=== PATIENT | female | born 1990 | race African-American/Black ===

== ENCOUNTER 2021-07-14 16:47 | Inpatient (IN) | payer MEDICAID ==
[~2021-07-14] VITALS: Ht 162.6 cm; Wt 77.1 kg
[2021-07-14] MEDS ORDERED: ALBUTEROL (0.083%) 2.5MG/3ML NEB HHN STA (17:12)
[2021-07-14] MEDS ORDERED: IPRATROPIUM BROMIDE (0.02%) 0.5MG/2.5ML NEB HHN STA (17:12)
[2021-07-14] MEDS ORDERED: METHYLPREDNISOLONE SOD SUCC 125 MG/2 ML VIAL IV STA (17:12)
[2021-07-14 17:38] LABS: BASOPHILS % 0.5 % (0.0-2.0); EOSINOPHILS % 2.7 % (0.0-5.0); HEMATOCRIT. 32.9 % (36.0-48.0); HEMOGLOBIN. 10.8 g/dL (12.0-16.0); LYMPHOCYTES % 26.1 % (20.0-50.0); MEAN CORPUSCULAR HEMOGLOBIN 27.1 pg (28.0-32.0); MEAN CORPUSCULAR VOLUME 82.5 fL (81.0-99.0); MEAN PLATELET VOLUME 8.3 fl (7.4-10.4); NEUTROPHILS % 62.7 % (40.0-76.0); PLATELET 339 x1000/uL (130-400); RED BLOOD CELL COUNT 3.99 mill/uL (4.2-5.4); RED CELL DISTRIBUTION WIDTH 14.5 % (11.6-14.6)
[2021-07-14 17:43] LABS: CHLORIDE 113 mEq/L (98-107); D-DIMER 2.27 mg/L FEU (<0.50); PROTHROMBIN TIME 11.1 sec (9.6-11.0)
[2021-07-14 17:46] LABS: HCG SCREEN NEGATIVE
[2021-07-14] MEDS ORDERED: FUROSEMIDE 40MG/4ML VIAL IVP ONE (18:00)
[2021-07-14] MEDS ORDERED: METOPROLOL TARTRATE 5MG/5ML VIAL IV SCH (18:45)
[2021-07-14 23:30] VITALS: BP 145/109
[2021-07-15] VITALS: BP 145/109
[2021-07-15] MEDS ORDERED: BICT1TAB PO (00:33)
[2021-07-15] MEDS ORDERED: ALBUTEROL (0.083%) 2.5MG/3ML NEB HHN PRN (00:45)
[2021-07-15] MEDS: AZITHROMYCIN 500 MG in DEXT 5% WATER 250 ML IV SCH (02:51)
[2021-07-15] MEDS: CEFTRIAXONE 1,000 MG in DEXTROSE 5% WATER 50 ML IV SCH (02:51)
[2021-07-15 04:00] VITALS: BP 130/90
[2021-07-15] MEDS: FUROSEMIDE 40MG/4ML VIAL IVP SCH ×2 (06:49→17:14)
[2021-07-15 07:40] LABS: CHLORIDE 109 mEq/L (98-107)
[2021-07-15 07:48] LABS: BASOPHILS % 0.5 % (0.0-2.0); HEMATOCRIT. 32.6 % (36.0-48.0); LYMPHOCYTES % 9.9 % (20.0-50.0); MEAN CORPUSCULAR HEMOGLOBIN 27.3 pg (28.0-32.0); MEAN CORPUSCULAR VOLUME 80.9 fL (81.0-99.0); MEAN PLATELET VOLUME 8.8 fl (7.4-10.4); MONOCYTES % 1.4 % (2.0-8.0); NEUTROPHILS % 88.2 % (40.0-76.0); PLATELET 315 x1000/uL (130-400); RED BLOOD CELL COUNT 4.03 mill/uL (4.2-5.4); RED CELL DISTRIBUTION WIDTH 14.5 % (11.6-14.6)
[2021-07-15 08:00] VITALS: BP 142/99
[2021-07-15] MEDS: METHIMAZOLE 10MG TABLET PO SCH ×2 (08:46→08:50)
[2021-07-15] MEDS: ASPIRIN 81MG TABLET PO SCH (08:46)
[2021-07-15] MEDS ORDERED: MEDICATION NOT ON FORMULARY EA (Bictegrav/Emtricit/Tenofov Ala (Biktarvy 50-200-25 mg Ta PO SCH (09:00)
[2021-07-15] MEDS ORDERED: LOSARTAN POTASSIUM 50 MG TABLET PO SCH (09:00)
[2021-07-15] MEDS ORDERED: CARVEDILOL 3.125 MG TABLET PO SCH (09:00)
[2021-07-15] MEDS ORDERED: METOPROLOL TARTRATE 5MG/5ML VIAL IV SCH (09:15)
[2021-07-15 12:00] VITALS: BP 126/94
[2021-07-15 16:00] VITALS: BP 131/90
[2021-07-15 16:14] LABS: CLARITY URINE CLOUDY (CLEAR); COLOR URINE ORANGE (YELLOW); KETONES URINE TRACE (NEGATIVE); LEUKOCYTE ESTERASE URINE 1+ (NEGATIVE); NITRITE URINE NEGATIVE (NEGATIVE); OCCULT BLOOD URINE 3+ (NEGATIVE); PH URINE 5.5 (4.5-8.0); PROTEIN URINE 2+ (NEGATIVE); SPECIFIC GRAVITY URINE 1.029 (1.005-1.030)
[2021-07-15] MEDS ORDERED: METOPROLOL TARTRATE 5MG/5ML VIAL IV PRN (16:15)
[2021-07-15 16:26] LABS: *BENZODIAZEPINES SCREEN URINE NEGATIVE (NEGATIVE); *COCAINE SCREEN URINE NEGATIVE (NEGATIVE); CANNABINOID URINE SCREEN NEGATIVE (NEGATIVE); METHADONE URINE SCREEN NEGATIVE (NEGATIVE); OPIATES URINE SCREEN NEGATIVE (NEGATIVE); PHENCYCLIDINE URINE SCREEN NEGATIVE (NEGATIVE)
[2021-07-15 16:27] LABS: *AMPHETAMINES SCREEN URINE NEGATIVE (NEGATIVE); *BARBITURATES SCREEN URINE NEGATIVE (NEGATIVE)
[2021-07-15 20:00] VITALS: BP 133/86
[2021-07-15] MEDS: CARVEDILOL 6.25 MG TABLET PO SCH (22:34)
[2021-07-16] VITALS: BP 130/88
[2021-07-16] MEDS: CEFTRIAXONE 1,000 MG in DEXTROSE 5% WATER 50 ML IV SCH (01:20)
[2021-07-16] MEDS: AZITHROMYCIN 500 MG in DEXT 5% WATER 250 ML IV SCH (02:47)
[2021-07-16 04:00] VITALS: BP 134/90
[2021-07-16] MEDS: FUROSEMIDE 40MG/4ML VIAL IVP SCH (06:49)
[2021-07-16 08:00] VITALS: BP 137/96
[2021-07-16] MEDS: ASPIRIN 81MG TABLET PO SCH (08:46)
[2021-07-16] MEDS: METHIMAZOLE 10MG TABLET PO SCH (08:46)
[2021-07-16] MEDS: CARVEDILOL 6.25 MG TABLET PO SCH (08:46)
[2021-07-16 12:00] VITALS: BP 141/93
[2021-07-16] MEDS ORDERED: POTASSIUM CHLORIDE 20MEQ TABLET SR PO SCH (12:30)
[2021-07-16] MEDS ORDERED: METOPROLOL TARTRATE 5MG/5ML VIAL IV PRN (12:30)
[2021-07-16] MEDS: METOPROLOL TARTRATE 25MG TABLET PO SCH (13:16)
[2021-07-16] MEDS: ACETAMINOPHEN 325MG TABLET PO PRN (13:52)
[2021-07-16 16:00] VITALS: BP 133/95
[2021-07-16] MEDS: LOSARTAN POTASSIUM 25 MG TABLET PO SCH (17:49)
[2021-07-16] MEDS: CARVEDILOL 12.5MG TABLET PO SCH (17:49)
[2021-07-16 20:00] VITALS: BP 123/89
[2021-07-16] MEDS ORDERED: CARVEDILOL 12.5MG TABLET PO SCH (21:00)
[2021-07-17] VITALS: BP 131/97
[2021-07-17] MEDS: CEFTRIAXONE 1,000 MG in DEXTROSE 5% WATER 50 ML IV SCH (00:25)
[2021-07-17] MEDS: AZITHROMYCIN 500 MG in DEXT 5% WATER 250 ML IV SCH (01:03)
[2021-07-17 04:00] VITALS: BP 125/92
[2021-07-17] MEDS: ACETAMINOPHEN 325MG TABLET PO PRN (05:35)
[2021-07-17 08:00] VITALS: BP 125/88
[2021-07-17 08:20] LABS: BASOPHILS % 0.7 % (0.0-2.0); EOSINOPHILS % 4.3 % (0.0-5.0); HEMATOCRIT. 34.8 % (36.0-48.0); HEMOGLOBIN. 11.7 g/dL (12.0-16.0); LYMPHOCYTES % 39.4 % (20.0-50.0); MEAN CORPUSCULAR HEMOGLOBIN 27.4 pg (28.0-32.0); MEAN CORPUSCULAR VOLUME 81.8 fL (81.0-99.0); MEAN PLATELET VOLUME 8.8 fl (7.4-10.4); MONOCYTES % 9.2 % (2.0-8.0); NEUTROPHILS % 46.4 % (40.0-76.0); PLATELET 305 x1000/uL (130-400); RED BLOOD CELL COUNT 4.26 mill/uL (4.2-5.4); RED CELL DISTRIBUTION WIDTH 14.5 % (11.6-14.6)
[2021-07-17 08:39] LABS: CHLORIDE 108 mEq/L (98-107)
[2021-07-17] MEDS: ASPIRIN 81MG TABLET PO SCH (08:41)
[2021-07-17] MEDS: METOPROLOL TARTRATE 25MG TABLET PO SCH (08:42)
[2021-07-17] MEDS: METHIMAZOLE 10MG TABLET PO SCH (08:42)
[2021-07-17] MEDS: CARVEDILOL 12.5MG TABLET PO SCH (08:42)
[2021-07-17] MEDS ORDERED: CARVEDILOL 6.25 MG TABLET PO SCH (08:45)
[2021-07-17] MEDS: LOSARTAN POTASSIUM 25 MG TABLET PO SCH (08:49)
[2021-07-17] MEDS ORDERED: FUROSEMIDE 20MG TABLET PO SCH (09:00)
[2021-07-17] MEDS ORDERED: POTASSIUM CHLORIDE 20MEQ TABLET SR PO SCH (09:00)
[2021-07-17] MEDS ORDERED: POTA-9 MT (10:46)
[2021-07-17] MEDS ORDERED: FURO-151 MT (10:46)
== END 2021-07-17 11:04 | disposition left against medical advice (07) | DRG 561 ==
LOC: ER 16:47 → 7WST 19:50 → EDBEDREQTM 19:58 → EDBEDREQ 19:58 → ENRESERV 21:21 → 7EST 07-15 14:09
PROVIDERS: ADMIT Internal Medicine; ATTEND Internal Medicine
DX: O99.53 Diseases of the respiratory system complicating the puerperium (principal); O90.3 Peripartum cardiomyopathy; E44.0 Moderate protein-calorie malnutrition; J18.9 Pneumonia, unspecified organism; I47.1 Supraventricular tachycardia; E87.8 Other disorders of electrolyte and fluid balance, not elsewhere classified; I16.0 Hypertensive urgency; O98 Maternal infectious and parasitic diseases classifiable elsewhere but complicating pregnancy, childbirth and the puerperium; I34.0 Nonrheumatic mitral (valve) insufficiency; I50.9 Heart failure, unspecified; O99.893 Other specified diseases and conditions complicating puerperium; Z53.29 Procedure and treatment not carried out because of patient's decision for other reasons; O99.285 Endocrine, nutritional and metabolic diseases complicating the puerperium; O25.3 Malnutrition in the puerperium; O75.4 Other complications of obstetric surgery and procedures; O99.03 Anemia complicating the puerperium; E05.90 Thyrotoxicosis, unspecified without thyrotoxic crisis or storm; J45.909 Unspecified asthma, uncomplicated; Z20.822 Contact with and (suspected) exposure to COVID-19; Z98.891 History of uterine scar from previous surgery; Z88.8 Allergy status to other drugs, medicaments and biological substances; Z21 Asymptomatic human immunodeficiency virus [HIV] infection status
CPT/HCPCS: 36415; 71045; 71275; 80048; 80053; 80305; 81003; 83880; 84439; 84443; 84481; 84484; 84703; 85025; 85379; 87426; 93005; 93306; 94640; 99291; J0456; J0696; J1940; J2930; J3490; J7040; J7060; U0003; U0005